=== PATIENT | male | born 1930 | race Caucasian/White ===

== ENCOUNTER 2018-06-24 20:00 | Emergency (ER) | payer OTHER ==
[~2018-06-24] VITALS: Ht 188 cm; Wt 106.6 kg
[2018-06-24] MEDS ORDERED: TAMS0.4C34 PO (20:37)
[2018-06-24] MEDS ORDERED: ASPI-605 PO (20:37)
[2018-06-24] MEDS ORDERED: AZEL137S7 NS (20:37)
[2018-06-24] MEDS ORDERED: PANT40TA4 PO (20:37)
[2018-06-24] MEDS ORDERED: DICL100G16 TP (20:37)
[2018-06-24] MEDS ORDERED: SIMV20TA6 PO (20:37)
[2018-06-24] MEDS ORDERED: CHOL10005 PO (20:37)
--- NOTE | 2018-06-24 21:41 | NUR ---
Xray at bedside. no acute distress noted. VSS
--- NOTE | 2018-06-24 21:55 | NUR ---
Patient discharged to home in stable conditon. Written and verbal after care instructions given. Patient verbalizes understanding of instructions. Ambulated from ER with stable gait. Patient will be driven home by significant other. All belongings with patient.
[2018-06-24] MEDS ORDERED: OXYCODONE/APAP 5-325 MG TABLET ONE (21:56)
[2018-06-24] MEDS: OXYCODONE/APAP 5-325 MG TABLET PO ONE (21:56)
[2018-06-24 21:58] VITALS: BP 131/87
== END 2018-06-24 21:58 | disposition home or self-care (01) ==
LOC: ER 20:02
DX: S40.011A Contusion of right shoulder, initial encounter (principal); K21.9 Gastro-esophageal reflux disease without esophagitis; W18.30XA Fall on same level, unspecified, initial encounter; Y93.89 Activity, other specified; Y92.89 Other specified places as the place of occurrence of the external cause; Y99.8 Other external cause status
CPT/HCPCS: 73030; A4663